=== PATIENT | female | born 1975 | race Caucasian/White ===

== ENCOUNTER → 2017-01-14 | Outpatient (CLI) | payer BC ==
--- NOTE | 2017-01-14 18:52 | Diagnostic Imaging Report ---
Bilateral screening mammogram 2D views with tomosynthesis The current study was also evaluated with a Computer Aided Detection (CAD) system. Indication: Screening. No current complaints stated on the questionnaire. COMPARISON: 01/16/16 FINDINGS: The breasts are composed of heterogeneously dense parenchyma which may decrease mammographic sensitivity. There is no mass, architectural distortion or suspicious cluster of calcification seen. Allowing for technique and positional differences, no suspicious change is seen. IMPRESSION: Dense breasts with no definite change. ACR BI-RADS Category 2: Benign findings. Result letter will be mailed to the patient. Note: At least 10% of breast cancer is not imaged by mammography. Dictated by: Dictated on workstation # [id number]
== END ==
LOC: RAD 09:27
PROVIDERS: ATTEND Obstetrics & Gynecology
DX: Z12.31 Encounter for screening mammogram for malignant neoplasm of breast (principal)
CPT/HCPCS: 77067

== ENCOUNTER → 2018-01-27 | Outpatient (CLI) | payer BC ==
--- NOTE | 2018-01-27 12:58 | Diagnostic Imaging Report ---
INDICATION: Screening. The current study was also evaluated with a Computer Aided Detection (CAD) system. 3-D tomosynthesis was also performed and reviewed. COMPARISON: Comparison made with prior examinations from 01/14/2017 back through 12/15/2012. FINDINGS: The fibroglandular tissue is heterogeneously dense bilaterally. There is no new dominant mass, spiculated lesion, or suspicious calcifications identified. The skin, nipples, and axillae are unremarkable. IMPRESSION: Benign. ACR BI-RADS Category 2: Benign findings. Result letter will be mailed to the patient. Note: At least 10% of breast cancer is not imaged by mammography. Dictated by: Dictated on workstation # [id number]
== END ==
LOC: RAD 08:11
PROVIDERS: ATTEND Obstetrics & Gynecology
DX: Z12.31 Encounter for screening mammogram for malignant neoplasm of breast (principal)
CPT/HCPCS: 77067

== ENCOUNTER → 2019-02-02 | Outpatient (CLI) | payer BC ==
--- NOTE | 2019-02-02 13:02 | Diagnostic Imaging Report ---
INDICATION: Routine screening. COMPARISON: 01/27/2018 and 01/14/2017. TECHNIQUE: 2D and 3D bilateral screening mammography was performed with CAD. FINDINGS: Both breasts remain heterogeneously dense, limiting the sensitivity of mammography. The overall parenchymal pattern is stable. No dominant mass or malignant appearing microcalcifications are seen. A density in the medial aspect of the right breast at mid depth on the CC view has been stable for several years. There appears to be an intraparenchymal lymph node in the upper outer left breast at posterior depth. The axillae are unremarkable. IMPRESSION: No mammographic features suspicious for malignancy are identified. ACR BI-RADS Category 2: Benign findings. Result letter will be mailed to the patient. Note: At least 10% of breast cancer is not imaged by mammography. Dictated by: Dictated on workstation # [id number]
== END ==
LOC: RAD 07:51
PROVIDERS: ATTEND Obstetrics & Gynecology
DX: Z12.31 Encounter for screening mammogram for malignant neoplasm of breast (principal)
CPT/HCPCS: 77067

== ENCOUNTER 2019-10-18 05:30 | Outpatient (RCR) | payer BC ==
[~2019-10-18] VITALS: Ht 162.6 cm; Wt 79.5 kg
[~2019-10-18 05:30] MED LIST: ATOR20TA66 PO; LEVO75TA6 PO; bcp PO
== END 2019-10-18 09:48 | disposition home or self-care (01) ==
LOC: PREOP 05:30
PROVIDERS: ATTEND Surgery
DX: Z01.812 Encounter for preprocedural laboratory examination (principal); Z20.828 Contact with and (suspected) exposure to other viral communicable diseases; Z80.0 Family history of malignant neoplasm of digestive organs
CPT/HCPCS: 87635

== ENCOUNTER → 2019-10-20 | Day surgery (SDC) | payer BC ==
[~2019-10-20] VITALS: Ht 162.2 cm; Wt 79.5 kg
[2019-10-20] VITALS (12 sets, daily range): BP systolic 94–124; BP diastolic 46–64
[~2019-10-20] MED LIST changes: +ACETAMINOPHEN 325 MG TABLET PO PRN; +HYDROcodone/APAP 5 MG/325 MG (LORTAB) TAB PO PRN; +LIDOCAINE JELLY 2% 6 ML SYRINGE MM PRN; +LIDOCAINE JELLY 2% 6 ML SYRINGE ONE; +MIDAZOLAM 5 MG/5 ML (VERSED) VIAL ONE; +NS IV 500 ML 500 ML IV PRN; +NS IV 500 ML 500 ML ONE; +ONDANSETRON 4 MG/2 ML (SDV) Z0FRAN IVP PRN; +fentaNYL INJECTION 100 MCG/2 ML AMP ONE; +morphine INJ 10 MG/ML 1ML (SYR OR VIAL) IVP PRN
--- OUTSIDE RECORDS SUMMARY | 2019-10-20 09:56 | XMS REPORT | Continuity of Care Document ---
Author Organization Unknown Address Unknown Phone Unavailable Allergies Active Description Code Type Severity Reaction Onset Reported/Identified Relationship to Patient Clinical Status Yes No Known Drug Allergies [id number] Drug Allergy Unknown N/A 10/14/2019 Medications There is no data. Problems Date Dx Coded Attending Type Code Diagnosis Diagnosed By 01/18/2015 YA BANSAL MD, Ot V76.12 01/16/2016 YA BANSAL MD, Ot V76.12 OTH SCREEN MAMMO-MALIGN NEOPLASM OF ELIZABETH 01/16/2016 YA BANSAL MD, Ot V76.12 OTH SCREEN MAMMO-MALIGN NEOPLASM OF ELIZABETH 01/16/2016 YA BANSAL MD Ot V76.12 OTH SCREEN MAMMO-MALIGN NEOPLASM OF ELIZABETH 01/31/2016 YA BANSAL MD, Ot Z12.31 ENCNTR SCREEN MAMMOGRAM FOR MALIGNANT NE 01/14/2017 YA BANSAL MD Ot V76.12 OTH SCREEN MAMMO-MALIGN NEOPLASM OF ELIZABETH 01/14/2017 YA BANSAL MD Ot V76.12 OTH SCREEN MAMMO-MALIGN NEOPLASM OF ELIZABETH 01/14/2017 YA BANSAL MD Ot V76.12 OTH SCREEN MAMMO-MALIGN NEOPLASM OF ELIZABETH 01/14/2017 YA BANSAL MD, Ot Z12.31 ENCNTR SCREEN MAMMOGRAM FOR MALIGNANT NE 01/15/2017 YA BANSAL MD, Ot Z12.31 ENCNTR SCREEN MAMMOGRAM FOR MALIGNANT NE 01/22/2017 YA BANSAL MD, Ot Z12.31 ENCNTR SCREEN MAMMOGRAM FOR MALIGNANT NE 03/04/2017 YA BANSAL MD Ot V76.12 OTH SCREEN MAMMO-MALIGN NEOPLASM OF ELIZABETH 03/04/2017 YA BANSAL MD, Ot V76.12 OTH SCREEN MAMMO-MALIGN NEOPLASM OF ELIZABETH 03/04/2017 YA BANSAL MD, Ot V76.12 OTH SCREEN MAMMO-MALIGN NEOPLASM OF ELIZABETH 03/04/2017 YA BANSAL MD, Ot Z12.31 ENCNTR SCREEN MAMMOGRAM FOR MALIGNANT NE 03/04/2017 YA BANSAL MD, Ot Z12.31 ENCNTR SCREEN MAMMOGRAM FOR MALIGNANT NE 01/28/2018 YA BANSAL MD, Ot Z12.31 ENCNTR SCREEN MAMMOGRAM FOR MALIGNANT NE 02/02/2019 YA BANSAL MD, Ot V76.12 OTH SCREEN MAMMO-MALIGN NEOPLASM OF ELIZABETH 02/02/2019 YA BANSAL MD, Ot V76.12 OTH SCREEN MAMMO-MALIGN NEOPLASM OF ELIZABETH 02/02/2019 YA BANSAL MD Ot Z12.31 ENCNTR SCREEN MAMMOGRAM FOR MALIGNANT NE 02/02/2019 YA BANSAL MD Ot Z12.31 ENCNTR SCREEN MAMMOGRAM FOR MALIGNANT NE 02/02/2019 YA BANSAL MD, Ot Z12.31 ENCNTR SCREEN MAMMOGRAM FOR MALIGNANT NE 02/04/2019 YA BANSAL MD, Ot Z12.31 ENCNTR SCREEN MAMMOGRAM FOR MALIGNANT NE Procedures There is no data. Results There is no data. Encounters ACCT No. Visit Date/Time Discharge Status Pt. Type Provider Facility Loc./Unit Complaint [id number] 10/18/2019 05:30:00 020 09:48:00 DIS Outpatient SAMIRA HOLMAN MD [facility] PREOP COLONOSCOPY [id number] 02/02/2019 07:51:00 019 23:59:59 CLS Outpatient YA BANSAL MD [facility] RAD SCREENING [id number] 01/27/2018 08:11:00 018 23:59:59 CLS Outpatient YA BANSAL MD [facility] RAD ROUTINE [id number] 01/14/2017 09:27:00 017 23:59:59 CLS Outpatient YA BANSAL MD [facility] RAD SCREENING [id number] 01/16/2016 08:52:00 016 23:59:59 CLS Outpatient YA BANSAL MD [facility] RAD ROUTINE [id number] 12/22/2014 12:52:00 015 23:59:59 CLS Outpatient YA BANSAL MD [facility] RAD SCREENING [id number] 12/23/2013 09:25:00 014 23:59:59 CLS Outpatient YA BANSAL MD [facility] RAD SCREENING [id number] 12/15/2012 09:02:00 013 23:59:59 CLS Outpatient YA BANSAL MD [facility] RAD SCREENING [id number] 10/20/2019 10:30:00 P SAMIRA Denise MD [facility] ENDO SCREENING/FAMILY HX COLON CA
--- OUTSIDE RECORDS SUMMARY | 2019-10-20 09:56 | XMS REPORT ---
Author Author [email or web address] [facility] [facility] [email or web address] [facility] Address [address] [address] Care Team Providers Care Loss Prevention Specialist Name Role Phone YA BANSAL MD Unavailable Unavailable Unavailable Unavailable Unavailable Unavailable Allergies No Information Medications No Information Problems Problem Normalized Date Last Normalized Normalized Provider Fa cility Classification Problem(s) Recorded Problem Problem Sta tus Duration Unclassified Encounter for Episodic Active YA Not A vailable (14 sources.) screening ROLF , (42065) mammogram for MD malignant neoplasm of breast Translations: [ OTH SCREEN MAMMO-MALIGN NEOPLASM OF ELIZABETH] Procedures No Information Immunizations No Information Results No Information Vital Signs No Information Interventions No Information Plan of Treatment No Information Goals No Information Social History No Information Functional Status No Information Mental Status No Information Encounters Encounter Normalized Encounter Encounter Diagnosis Care Provi tonio Organization Date Type 01-27-2018 Patient encounter no information no name no or ganization name NEGATED Patient encounter no information no name no or ganization name 01-14-2017 01-16-2016 Patient encounter no information no name no or ganization name 12-23-2013 Patient encounter no information no name no or ganization name 12-15-2012 Patient encounter no information no name no or ganization name 02-02-2019 Patient encounter no information no name no or ganization name procedure 01-27-2018 Patient encounter no information no name no or ganization name procedure 01-14-2017 Patient encounter no information no name no or ganization name procedure 01-16-2016 Patient encounter no information no name no or ganization name procedure 12-22-2014 Patient encounter no information no name no or ganization name procedure 12-23-2013 Patient encounter no information no name no or ganization name procedure Medical Equipment No Information Payers No Information Additional Source Comments This clinical document has been generated using [employer] software that has been certified by the Office of the National Coordinator for Health Information Technology (ONC 15.99.04.3023.Diam.31.00.0.250768) and the National Committee for Religion Professor (NCQA, as an eMeasure certified technology). FOR RECORDS PERTAINING TO PATIENTS WHO ARE OR HAVE BEEN ENROLLED IN A CHEMICAL D EPENDENCY/SUBSTANCE ABUSE PROGRAM, SOME INFORMATION MAY BE OMITTED. This clinica l summary was aggregated from multiple sources. Caution should be exercised in using it in the provision of clinical care. This summary normalizes information from multiple sources, and as a consequence, information in this document may ma terially change the coding, format and clinical context of patient data. In lubna tion, data may be omitted in some cases. CLINICAL DECISIONS SHOULD BE BASED ON T HE PRIMARY CLINICAL RECORDS. [facility] [employer] [facility]. provides no warranty or guara ntee of the accuracy or completeness of information in this document.The followi information is based on time limited clinical information
--- NOTE | 2019-10-20 10:04 | Conscious Sedation/ASA ---
Conscious Sedation Pre-Proced Time 09:00 ASA Score 2 For ASA 3 and 4: Consider anesthesia and medical clearance. Also, for patients with a history of failed moderate sedation consider anesthesia. Airway Lungs Heart ASA score ASA 1: a normal healthy patient ASA 2: a patient with a mild systemic disease (mid diabetes, controlled hypertension, obesity ASA 3: a patient with a severe systemic disease that limits activity (angina, COPD, prior Myocardial infarction) ASA 4: a patient with an incapacitating disease that is a constant threat to life (CHF, renal failure) ASA 5: a moribund patient not expected to survive 24 hrs. (ruptured aneurysm) ASA 6: a declared brain- patient whose organs are being harvested. For emergent operations, add the letter E after the classification Mallampati Classification Grade 2 Sedation Plan Analgesia, Amnesia, Plan communicated to team members, Discussed options with patient/fam, Discussed risks with patient/fam The patient is an appropriate candidate to undergo the planned procedure, sedation, and anesthesia. The patient immediately re-assessed prior to indication. SAMIRA HOLMAN MD Oct 20, 2019 10:04
--- NOTE | 2019-10-20 10:06 | Discharge Inst-Surgical ---
D/C Lap Instructions-RIVER Follow Up Appt in 2 weeks Activity as tolerated High Fiber Diet 25g or more per day Avoid Alcohol, Caffeine, Spicy [place] and Acid foods. Drink 64 fluid oz or more of fluids per day. Symptoms to Report: Fever over 101 degree F, Nausea/Vomiting If any problems/questions: Contact your physician or go to Emergency Room SAMIRA HOLMAN MD Oct 20, 2019 10:06
[2019-10-20] MEDS: MIDAZOLAM 5 MG/5 ML (VERSED) VIAL IV PRN ×5 (10:50→11:04)
[2019-10-20] MEDS: fentaNYL INJECTION 100 MCG/2 ML AMP IVP ONE (10:51)
--- NOTE | 2019-10-20 11:24 | Progress Note-Post Operative ---
Post-Operative Progess Note Surgeon (s)/Ship [place] Pilot (s) Surgeon SAMIRA HOLMAN MD [place] Pilot: none Pre-Operative Diagnosis screening colo, family hx Post-Operative Diagnosis normal colon and rectum Procedure & Operative Findings Date of Procedure 10/20/19 Procedure Performed/Findings colonoscopy Anesthesia Type cs Estimated Blood Loss Estimated blood loss (mL): minimal Specimens/Packing Specimens Removed none SAMIRA HOLMAN MD Oct 20, 2019 11:24
--- NOTE | 2019-10-20 20:08 | OPERATIVE REPORT ---
DATE OF SERVICE: 10/20/2019 PREOPERATIVE DIAGNOSIS: Screening colonoscopy with family history of colon cancer. POSTOPERATIVE DIAGNOSIS: Normal colon and rectum. PROCEDURE: Colonoscopy. SURGEON: Samira Holman MD. ANESTHESIA: Conscious sedation. ESTIMATED BLOOD LOSS: Minimal. FINDINGS: Normal colon and rectum. DISPOSITION: The patient tolerated the procedure well. INDICATIONS: The patient is a 44-year-old female who states that she did have a colonoscopy approximately 15 years ago. At that time, she was having crampy abdominal pain and was diagnosed with endometriosis. She does report since that time, she has had a first-degree family member diagnosed with colon cancer with her father having the disease at age 65. She states that she is otherwise doing well, does not report any major issues with diarrhea nor constipation as well as no red blood per rectum nor any dark tarry stools. DESCRIPTION OF PROCEDURE: The patient was brought to the endoscopy suite, laid in the left lateral decubitus position. After adequate IV pain and sedative medications and conscious sedation anesthesia, digital rectal examination was performed. No major hemorrhoids were identified. Normal sphincter tone was felt and there were no palpable masses. The endoscope was then intubated to the anus and rectum gently insufflated. The endoscope was then advanced through the valves of Rodriges of the rectum with no polyps or any neoplasms identified. Through the sigmoid colon, no diverticulosis identified. The endoscope was then advanced to the remainder of the descending, transverse and ascending colon to the cecum. These segments were normal. There were no polyps or any neoplasms identified throughout the colon or rectum. The endoscope was then slowly withdrawn while taking a second look and suctioning of residual air with no additional findings. The patient tolerated the procedure well. We will recommend medical management with a high fiber diet with at least 25 grams of fiber daily as well as significant amounts of water to promote soft stools on a daily basis. Due to her first-degree family history of colon cancer, we will recommend followup colonoscopies approximately every 5 years. Job ID: [id number] DocumentID: [id number] Dictated Date: 10/20/2019 11:19:23 Formal Service Waiter Date: 10/20/2019 20:08:00 Dictated By: SAMIRA HOLMAN MD
== END | disposition home or self-care (01) ==
LOC: ENDO 09:32
PROVIDERS: ATTEND Surgery
DX: Z12.11 Encounter for screening for malignant neoplasm of colon (principal); Z80.0 Family history of malignant neoplasm of digestive organs; E03.9 Hypothyroidism, unspecified; E78.00 Pure hypercholesterolemia, unspecified; N80.9 Endometriosis, unspecified; Z79.890 Hormone replacement therapy; Z79.899 Other long term (current) drug therapy

== ENCOUNTER → 2020-02-07 | Outpatient (CLI) | payer BC ==
[~2020-02-07] MED LIST changes: -ACETAMINOPHEN 325 MG TABLET PO PRN; -HYDROcodone/APAP 5 MG/325 MG (LORTAB) TAB PO PRN; -LIDOCAINE JELLY 2% 6 ML SYRINGE MM PRN; -LIDOCAINE JELLY 2% 6 ML SYRINGE ONE; -MIDAZOLAM 5 MG/5 ML (VERSED) VIAL ONE; -NS IV 500 ML 500 ML IV PRN; -NS IV 500 ML 500 ML ONE; -ONDANSETRON 4 MG/2 ML (SDV) Z0FRAN IVP PRN; -fentaNYL INJECTION 100 MCG/2 ML AMP ONE; -morphine INJ 10 MG/ML 1ML (SYR OR VIAL) IVP PRN
--- NOTE | 2020-02-07 11:29 | Diagnostic Imaging Report ---
EXAMINATION: Digital mammogram bilateral screening with CAD. INDICATION: Screening. COMPARISON: This study was compared to the prior exams of 02/02/2019, 01/27/2018, and 01/14/2017. PERSONAL HISTORY: At this time, there are no current complaints. FINDINGS: The fibroglandular tissue in both breasts is heterogeneously dense. This does limit the sensitivity of this exam. Overall, there does not appear to have been any significant change when compared to the prior study. No primary or secondary sign of malignancy is noted. IMPRESSION: There is no radiographic evidence for malignancy. ACR BI-RADS Category 1: Negative. Result letter will be mailed to the patient. Note: At least 10% of breast cancer is not imaged by mammography. Dictated by: Dictated on workstation # [id number]
== END ==
LOC: RAD 08:45
PROVIDERS: ATTEND Obstetrics & Gynecology
DX: Z12.31 Encounter for screening mammogram for malignant neoplasm of breast (principal)
CPT/HCPCS: 77063; 77067

== ENCOUNTER → 2021-03-06 | Outpatient (CLI) | payer BC ==
--- NOTE | 2021-03-06 12:27 | Diagnostic Imaging Report ---
INDICATION: Routine screening. COMPARISON: 02/07/2020 and 02/02/2019. TECHNIQUE: 2D and 3D bilateral screening mammography was performed with CAD. FINDINGS: Both breasts are heterogeneously dense, limiting the sensitivity of mammography. No mass or malignant-appearing microcalcifications are seen. The axillae are unremarkable. IMPRESSION: No mammographic features suspicious for malignancy are identified. ACR BI-RADS Category 1: Negative. Result letter will be mailed to the patient. Note: At least 10% of breast cancer is not imaged by mammography. Dictated by: Dictated on workstation # [id number]
== END ==
LOC: RAD 08:18
PROVIDERS: ATTEND Obstetrics & Gynecology
DX: Z12.31 Encounter for screening mammogram for malignant neoplasm of breast (principal)
CPT/HCPCS: 77063; 77067

== ENCOUNTER → 2022-04-26 | Outpatient (CLI) | payer BC ==
--- NOTE | 2022-04-26 12:08 | Diagnostic Imaging Report ---
INDICATION: Routine screening. Comparison is made with prior mammogram from 03/06/2021 and 02/07/2020. 2-D and 3-D bilateral screening mammography was performed with CAD. Both breasts are heterogeneously dense, limiting the sensitivity of mammography. A benign nodule in the outer left breast is stable. No mass or malignant-appearing microcalcifications are seen. Axillae are unremarkable. IMPRESSION: No mammographic features suspicious for malignancy are identified. ACR BI-RADS Category 2: Benign findings. Result letter will be mailed to the patient. Note: At least 10% of breast cancer is not imaged by mammography. BI-RADS Category 2 Dictated by: Dictated on workstation # [id number]
== END ==
LOC: RAD 08:45
PROVIDERS: ATTEND Obstetrics & Gynecology
DX: Z12.31 Encounter for screening mammogram for malignant neoplasm of breast (principal)
CPT/HCPCS: 77063; 77067